=== PATIENT | male | born 1975 ===

== ENCOUNTER 2025-09-20 12:59 | Outpatient (AMB) | payer MEDICAID, SELFPAY ==
--- OUTSIDE RECORDS SUMMARY | 2024-05-05 04:00 | XMS_ITS ---
Author Organization [facility] Address [address] [place] [phone] Care Team Providers Care Web Content Editor Name Role Phone NO, PCP Primary Care Provider Morena Torres Encounters Encounter Location Date Provider Diagnosis [facility] [address] [place] [phone] 05/05/2024 Morena Torres Plan Of Treatment No Information Progress Notes * Elle HONEYCUTTyDOB:0 1975 (49 yo M)Acc No.[id number]:05/05/2024 Case Management Patient: Radha MARKHAM Pat GROSSMAN Provider: Lucy Torres :1975 A ge:48 Y S ex:Male Date:05/05/2024 Address:[id number] Pcp:PCP NO Subjective: * Chief Complaints: * * Medical History: Objective: Assessment: Plan: * Treatment: * Images: Billing Information: * Visit Code: * Procedure Codes: Care Plan Details* * Electronic signature of Michael Torres on 09/20/2025 at 03:27 PM EST Sign off status: Pending * Provider: Lucy Torres Date: 0 05/05/2024 Generated for Loraine shepherd/Mason/Ashlee on: 1 11/21/2024 03:27 PM EST
--- OUTSIDE RECORDS SUMMARY | 2024-11-03 05:00 | XMS_ITS ---
Author Organization [facility] Address [address] [place] [address] Care Team Providers Care Incinerator Operator Name Role Phone NO, PCP Primary Care Provider Morena Torres REASON FOR VISIT housing Encounters Encounter Location Date Provider Diagnosis [facility] [address] [place], [place] [phone] 11/03/2024 Morena Torres Plan Of Treatment No Information Progress Notes * Elle HONEYCUTTyDOB:0 1975 (49 yo M)Acc No.[id number]:11/03/2024 Case Management Patient: Radha MARKHAM Pat GROSSMAN Provider: Lucy Torres :1975 A ge:48 Y S ex:Male Date:11/03/2024 Address:[id number] Pcp:PCP NO Subjective: * Chief Complaints: * 1 . Housing. * Medical History: Objective: Assessment: Plan: * Treatment: * Images: Billing Information: * Visit Code: * Procedure Codes: Care Plan Details* * Electronic signature of Michael Torres on 09/20/2025 at 03:27 PM EST Sign off status: Pending * Provider: Lucy Torres Date: 0 11/03/2024 Generated for Loraine shepherd/Mason/eTransmitting on: 1 11/21/2024 03:27 PM EST
--- OUTSIDE RECORDS SUMMARY | 2025-03-07 06:00 | XMS_ITS ---
Author Organization [facility] Address [address] [place] [address] Care Team Providers Care Trimmer Hand Name Role Phone NO, PCP Primary Care Provider [phone] Morena Torres Encounters Encounter Location Date Provider Diagnosis [facility] [address] [place] [phone] 03/07/2025 Morena Torres Plan Of Treatment No Information Progress Notes * Elle HONEYCUTTyDOB:0 1975 (49 yo M)Acc No.[id number]:03/07/2025 Case Management Patient: Radha MARKHAM Pat GROSSMAN Provider: Lucy Torres :1975 A ge:49 Y S ex:Male Date:03/07/2025 Address:[id number] Pcp:PCP NO Subjective: * Chief Complaints: * * Medical History: Objective: Assessment: Plan: * Treatment: * Images: Billing Information: * Visit Code: * Procedure Codes: Care Plan Details* * Electronic signature of Michael Torres on 09/20/2025 at 03:28 PM EST Sign off status: Pending * Provider: Lucy Torres Date: 0 03/07/2025 Generated for Loraine shepherd/Mason/Ashlee on: 1 11/21/2024 03:28 PM EST
--- NOTE | 2025-09-20 13:10 | A.OFFVIS_ITS ---
Intake Visit Reasons: Erectile Dysfunction/Phimosis(set) Intake Note: Reason for Visit: New Patient Erectile Dysfunction/Phimosis Urology Meds: Sildenafil Blood Thinners: None Antibiotic Allergy: None Labs: PSA- 0.55 (12/22/2024) Imaging: None Last PVR: None Family Hx: Prostate Cancer? No Bladder Cancer? No Kidney Cancer? No Housekeeping Staff Required: Yes Housekeeping Staff Language: Front End Developer Designer Services: Housekeeping Staff Present Accompanied by: Self / Same As Patient Allergies No Known Allergies Allergy (Verified 09/20/25 13:15) HPI Comments Details: Pat is a pleasant Syriac-speaking male. He is a patient of Dr.Del Calderon. He is seen for the following urologic conditions - phimosis - erectile dysfunction in setting of diabetes Syriac translation provided by qualified ophthalmic medical technologist Both conditions impacted by diabetes Current HbA1c 7.7 Discussed target 6.5 Phimosis Unable to fully retract foreskin Discussed circumcision versus topical cream Start cream but plan for circumcision Erectile dysfunction Progressive diabetic Managed since 2019 Currently insulin-dependent Last nocturnal erection early 2024 Unable to obtain or maintain erection Trial daily Cialis with 20 mg salvage PFSH Medical History (Updated 09/20/25 @ 13:44 by Damon Bishop MD) Erectile dysfunction Claustrophobia Paranoia Schizophrenia Carpal tunnel syndrome, bilateral Class 1 obesity due to excess calories with serious comorbidity and body mass index (BMI) of 31.0 to 31.9 in adult Neuropathy Moderate persistent asthma with (acute) exacerbation Phimosis Abnormal nuclear stress test Type 2 diabetes mellitus with hyperglycemia, with long-term current use of insulin Review of Systems Const Denies chills and Denies fever(s) Card Reports no additional complaints and Denies syncope Resp Denies cough GI Denies abdominal pain and Denies heartburn Reports as per HPI and Denies change in libido Neuro Denies syncope Psych Denies change in libido Endo Denies change in libido Physical Exam Const General: cooperative, healthy appearing, comfortable and no acute distress Orientation/consciousness: patient oriented x3 HEENT Face and sinus: Yes normal facial exam Mouth: moist mucous membranes Neck Neck: Yes normal visual inspection, Yes full ROM and Yes trachea midline Chest Chest palpation & inspection: normal inspection of the chest Resp Effort & Inspection: normal respiratory effort, able to speak in complete sentences and no respiratory distress GI Inspection: Yes normal to inspection Back/Spine/Pelvis Cervical Spine: normal cervical lordosis Thoracic/Lumbar Spine: thoracic and lumbar spine normal to inspection Skin General skin exam: no rashes or lesions noted Neuro General: patient oriented x3, gait normal, tone normal and moves all extremities Extrem General: Yes normal to inspection and Yes capillary refill normal Assessment & Plan Assessment & Plan (1) Phimosis: Code(s): N47.1 - Phimosis Category: Medical (2) Erectile dysfunction: Code(s): N52.9 - Male erectile dysfunction, unspecified Category: Medical Plan Start combination tadalafil Start betamethasone cream Risks, benefits and alternatives to therapy were discussed. These include but are not limited to infection, bleeding, damage to local organs and tissues, need for further interventions. Anesthetic risks regarding cardiac arrhythmia, blood clots, and potential mortality were discussed. The patient understands the typical recovery time and the outpatient nature of the procedure. After consideration of these risks the patient gives full informed consent and they wish to move ahead with the procedure. Circumcision Medications: New [id number] [facility] [id number] 5 mg PO DAILY 90 tabs 0RF sexual activity 90 days N52.9 - Male erectile dysfunction, unspecified tadalafil [id number] [facility] [id number] 20 mg PO 1XD PRN 30 tabs 1RF sexual activity 30 days N52.9 - Male erectile dysfunction, unspecified clotrimazole-betamethasone 1-0.05 % APPLY THIN COAT TOPICALLY TWICE A DAY 1 appl topical BID 45 grams 0RF N47.1 - Phimosis Patient Instructions: This note is constructed using voice recognition software. While every effort has been made to ensure accuracy management tech errors may have been included. Imaging studies, laboratory and physical exam results were discussed and reviewed in detail. No major barriers to patient understanding were identified. An opportunity to ask questions regarding the treatment plan was provided. All questions were answered. The patient expressed understanding and agreement with the above treatment plan. The patient is aware they should contact our office by phone for worsening of their current condition or the appearance of new urologic symptoms. Compliance is encouraged with any medications and followup testing that is ordered. It is a privilege to participate in the urologic care of your patient. If you have any questions or concerns regarding treatment for the above conditions, or other urologic issues, please do not hesitate to contact me. The office telephone contact is [phone]. Sincerely, Dr Damon Bishop MD, [facility] - Urology Compassionate Specialist Care for the Genitourinary System Coding Level of Care Code New Pt Level 4 (03336) Diagnoses Phimosis N47.1 Erectile dysfunction N52.9
--- OUTSIDE RECORDS SUMMARY | 2025-09-20 15:28 | XMS_ITS | Clinical Summary ---
Author Organization [facility] Address [address] [place] [address] Phone Care Team Providers Care Chief Scientific Officer Name Role Phone Jenny Biggs Primary Care Provider [phone] Allergies Active Allergy Reactions Criticality Noted Date Comments Shellfish Derived 09/06/2025 Medications budesonide-for moteroL (SYMBICORT) 80-4.5 mcg/actuation inhaler Inhale 2 puffs by mouth 2 times daily. 12/03/19 24 Active albuterol HFA (PROAIR HFA ; PROVENTIL HFA ; VENTOLIN HFA) 90 mcg/actuation inhaler Inhale 2 puffs by mouth every 4 (four) hours if needed. 12/03/19 24 Active ARIPiprazole (ABILIFY) 5 mg tablet Take 1 tablet (5 mg total) by mouth daily. 09/16/20 23 Active melatonin 5 mg tablet Take 1 tablet (5 mg total) by mouth at bedtime as needed for sleep. 07/28/20 23 Active sertraline (ZOLOFT) 100 mg tablet Take 1 tablet (100 mg total) by mouth 1 (one) time each day. 08/24/20 23 Active atorvastatin (LIPITOR) 20 mg tablet Take 1 tablet (20 mg total) by mouth 1 (one) time each day. Active gabapentin (NEURONTIN) 300 mg capsule Take 1 capsule (300 mg total) by mouth 2 (two) times a day. Active metFORMIN (GLUCOPHAGE) 1,000 mg tablet Take 1 tablet (1,000 mg total) by mouth 2 times daily. 09/19/20 24 Active insulin glargine-yfgn 100 unit/mL (3 mL) injection Inject 22 Units under the skin 1 (one) time each day. 12/24/19 24 Active buPROPion XL (WELLBUTRIN XL) 150 mg 24 hr tablet Take 1 tablet (150 mg total) by mouth 1 (one) time each day. 02/17/20 24 Active diclofenac (VOLTAREN) 1 % topical gel Apply 2-4 g topically 2 times daily. 02/25/20 24 Active alcohol swabs pads, medicated Use to clean finger to test blood sugar up to 3 times daily. 04/09/20 23 Active tirzepatide (Mounjaro) 5 mg/0.5 mL injection Inject 0.5 mL (5 mg total) under the skin every 7 (seven) days. Active ibuprofen (ADVIL,MOTRIN) 600 mg tablet Take 1 tablet (600 mg total) by mouth 3 times daily as needed. 03/16/20 25 Active sildenafiL (VIAGRA) 50 mg tablet Take 1 tablet (50 mg total) by mouth 1 (one) time each day if needed for erectile dysfunction. Active blood-glucose sensor (FreeStyle Rita 3 Plus Sensor) APPLY SENSOR TO BACK OF UPPER ARM AND CHANGE EVERY 14 DAYS. USE TO TEST BLOOD GLUCOSE AT LEAST 3 TIMES DAILY. 11/27/19 25 Active glucose blood (Blood Glucose Test) test strip 1 each by Other route if needed. 12/22/19 24 Active freestyle 28 gauge lancets 1 each by Other route if needed. 12/22/19 24 Active dulaglutide (Trulicity) 3 mg/0.5 mL pen injector injection Inject 0.5 mL (3 mg total) under the skin every 7 (seven) days. 025 Discontinued Encounters Date Type Department Care Team Description 09/06/2025 Telephone Gastroenterology - [address] [address] Jemal Corona MD 07/12/2025 Telephone Gastroenterology - [address] [address] Jemal Corona MD from Last 3 Months Family History Medical History Relation Name Comments Heart attack Father Relation Name Status Comments Father Social History Tobacco Use Types Packs/Day Years Used Date Smoking Tobacco: Never Smokeless Tobacco: Never Sex and Gender Information Value Date Recorded Sex Assigned at Male 10/07/2024 4:20 PM EST Legal Sex Male 10:06 AM EST Gender Identity Male 10/07/2024 4:20 PM EST Sexual Orientation Straight 10/07/2024 4: 20 PM EST Obstetrics History Last Filed Vital Signs Vital Sign Reading Time Taken Comments Blood Pressure 114/68 05/07/2023 12:58 PM EDT Si tting L Arm Pulse 74 05/07/2023 12:58 PM EDT Temperature - - Respiratory Rate - - Oxygen Saturation - - Inhaled Oxygen Concentration - - Weight 83.5 kg (184 lb) 02/09/2024 1:21 PM EDT Height 167.6 cm (5' 6 ) 02/09/2024 1:21 PM EDT Body Mass Index 29.7 02/09/2024 1:21 PM EDT Plan of Treatment Health Maintenance Due Date Last Done Comments Colorectal Cancer Screening: Colonoscopy 1975 Hepatitis B Vaccines (1 of 3 - 19+ 3-dose series) 1992 HIV Screening 11/17/2023 Social Influencers of Health Screening 11/17/2023 RSV Immunization Adult Patients (1 - Risk 50-74 years 1-dose series) 2023 Zoster Vaccines (1 of 2) 2023 Depression Screening 10/19/2024 COVID-19 Vaccine (2 - 2024- season) 2025 12/03/2023 Influenza Vaccine (#1) 2025 07/22/2024, 2023 Cholesterol Screening (Lipid Panel) 12/22/2029 12/22/2024, 12/22/2024, 12/03/2023, Additional history exists DTaP,Tdap,and Td Vaccines (2 - Td or Tdap) 12/03/2033 12/03/2023 Hepatitis C Screening Completed 12/03/2023 Pneumococcal Vaccine: 50+ Years Completed 12/03/2023 HIB Vaccines Aged Out No longer eligi ble based on patient's age to complete this topic HPV Vaccines Aged Out No longer eligi ble based on patient's age to complete this topic Hepatitis A Vaccines Aged Out No long er eligible based on patient's age to complete this topic IPV Vaccines Aged Out No longer eligi ble based on patient's age to complete this topic MMR Vaccines Aged Out No longer eligi ble based on patient's age to complete this topic Meningococcal ACWY Vaccine Aged Out N o longer eligible based on patient's age to complete this topic Meningococcal B Vaccine Aged Out No l onger eligible based on patient's age to complete this topic RSV Immunization Patients Under 20 months Aged Out No longer eligible based on patient's age to complete this topic Varicella Vaccines Aged Out No longer eligible based on patient's age to complete this topic Insurance MEDICAID - [place] Care Teams Chief Scientific Officer Relationship Specialty Start Date End Date Jenny Biggs PA [address] [place] [address] PCP - General 09/06/25
--- OUTSIDE RECORDS SUMMARY | 2025-09-20 15:28 | XMS_ITS | Patient Health Record ---
Author Organization [facility] Address [address] [place] [address] Care Team Providers Care Credit Card Analyst Name Role Phone NO, PCP Primary Care Provider Morena Torres Reason For Referral No Information Encounters Encounter Location Date Provider Diagnosis [facility] [address] [place] [phone] 09/29/2024 Morena Torres [facility] [address] [place] [phone] 10/28/2024 Morena Torres [facility] [address] [place] [phone] 11/10/2024 Morena Toro-Jacob [facility] [address] [place] [phone] 11/17/2024 Morena Torres [facility] [address] [place] [id number] 01/31/2025 Morena Toro-Jacob [facility] [address] [place] [phone] 02/17/2025 Morena Torres [facility] [address] [place] [phone] 04/11/2025 Morena Torres Plan Of Treatment No Information Insurance Providers Payer Name Payer Address Payer Phone Subscriber Number Group Number Insured Name Patient Relationship to Insured Coverage Start Date Coverage End Date [place] Standard [address] [place] [phone] Pat Elmore Self - patient is the insured
== END 2025-09-20 13:54 | disposition home or self-care (01) ==
LOC: HO.HUSH 13:00
PROVIDERS: PCP Nurse Practitioner; Visit Provider Urology
DX: N47.1 Phimosis (principal); N52.9 Male erectile dysfunction, unspecified
CPT/HCPCS: 99204

== ENCOUNTER → 2025-09-20 12:59 | Outpatient (BNVA) | payer MEDICAID, SELFPAY | PROVIDERS: PCP Nurse Practitioner; Visit Provider Urology | DX: N47.1 Phimosis (principal); N52.9 Male erectile dysfunction, unspecified | CPT/HCPCS: 99202 ==